=== PATIENT | female | born 1950 | race Caucasian/White ===

== ENCOUNTER → 2019-07-03 13:47 | Outpatient (BNVA) | payer MEDICARE, MEDICAID, SELFPAY | PROVIDERS: Family Provider Nurse Practitioner; PCP Nurse Practitioner; Visit Provider Family Medicine | DX: E78.00 Pure hypercholesterolemia, unspecified (principal) | CPT/HCPCS: 80061 ==

== ENCOUNTER → 2020-03-05 10:48 | Outpatient (BNVA) | payer MEDICARE, MEDICAID, SELFPAY | PROVIDERS: Family Provider Nurse Practitioner; PCP Nurse Practitioner Family; Referring Provider Nurse Practitioner Family; Visit Provider Anesthesiology | DX: G89.29 Other chronic pain (principal); M54.5 Low back pain; M54.9 Dorsalgia, unspecified; M62.830 Muscle spasm of back; M99.03 Segmental and somatic dysfunction of lumbar region; F17.210 Nicotine dependence, cigarettes, uncomplicated; Z79.891 Long term (current) use of opiate analgesic; Z71.6 Tobacco abuse counseling | CPT/HCPCS: 99204 ==

== ENCOUNTER → 2020-04-09 13:57 | Outpatient (BNVA) | payer MEDICARE, MEDICAID, SELFPAY | PROVIDERS: Family Provider Nurse Practitioner; PCP Nurse Practitioner Family; Visit Provider Anesthesiology | DX: M99.03 Segmental and somatic dysfunction of lumbar region (principal); F17.210 Nicotine dependence, cigarettes, uncomplicated; Z79.891 Long term (current) use of opiate analgesic | CPT/HCPCS: 99213 ==

== ENCOUNTER → 2020-06-04 13:39 | Outpatient (BNVA) | payer MEDICARE, MEDICAID, SELFPAY | PROVIDERS: Family Provider Nurse Practitioner; PCP Nurse Practitioner Family; Visit Provider Anesthesiology | DX: M99.03 Segmental and somatic dysfunction of lumbar region (principal); G56.40 Causalgia of unspecified upper limb; Z79.891 Long term (current) use of opiate analgesic; F17.210 Nicotine dependence, cigarettes, uncomplicated | CPT/HCPCS: 99213 ==

== ENCOUNTER → 2020-08-18 10:45 | Outpatient (BNVA) | payer MEDICARE, MEDICAID, SELFPAY | PROVIDERS: Family Provider Nurse Practitioner; PCP Nurse Practitioner Family; Visit Provider Anesthesiology | DX: M54.5 Low back pain (principal); M99.03 Segmental and somatic dysfunction of lumbar region; F17.210 Nicotine dependence, cigarettes, uncomplicated; Z79.891 Long term (current) use of opiate analgesic | CPT/HCPCS: 99213 ==

== ENCOUNTER 2020-10-09 13:36 | Inpatient (IN) | payer MEDICARE, MEDICAID, SELFPAY ==
[2020-10-09 13:44] VITALS: BP 137/80; PULSE 110; RESP 18; TEMP 36.8; O2SAT 98; BMI 11.5
--- NOTE | 2020-10-09 14:28 | XR_ITS ---
WS: [id number] Exam: XR chest 1V portable [id number] Date/Time of Exam: 10/09/2020 2:28 PM Reason For Exam: cancer Comparison 06/28/2018. There is diffuse interstitial infiltrate in the right upper lobe. Remaining lung magaña are clear. He art size is normal. The mediastinum is not widened. No pleural effusions or pneumothorax. Bony struct ures are intact. XR/XR chest 1V portable [id number] IMPRESSION: 1. Diffuse interstitial infiltrate in the right upper lobe suggesting pneumonia .
[2020-10-09 14:29] VITALS: RESP 16
[2020-10-09] MEDS: morphine 4 mg/mL SDV 1 mL IVP (14:29)
[2020-10-09] MEDS: ondansetron 2 mg/ML SDV 2 mL 4 MG IVP (14:30)
--- NOTE | 2020-10-09 14:40 | W.ED.GENADLT ---
HPI - General Adult General: Chief complaint: Weakness Stated complaint: GENERALIZED WEAKNESS Time Seen by Provider: 10/09/20 13:38 History of Present Illness: HPI narrative: Patient is a 70-year-old female with a history of metastatic lung cancer complicated by vertebral fracture who presents the emergency room for concerns of dehydration, inability to tolerate p.o. and significant weight loss. Patient was diagnosed with cancer earlier this year. Since then, patient has undergone multiple rounds of treatment. Yesterday, satient was told that she cannot complete her radiation treatment because of her significant weight loss. She was also told to go to the emergency room because she is no longer able to tolerate p.o. Patient denies any fever/chills, nausea plan, abdominal pain. Patient has chronic back pain for a few weeks now. Onset: chronic Duration:ongoing Location:home Severity:severe Review of Systems Narrative: Constitutional: No fever, no chills. +thin, +weight loss HEENT: No vision changes CV: No chest pain, no palpitations PULM: no cough, no dyspnea. GI: No abdominal pain, no N/V/D. +decreased PO intact : No dysuria MSKEL: No muscle pain SKIN: No new rashes, no lesions. NEURO: No headache, no focal weakness. HEME: No visible bruises PSYCH: Normal mood PFSH ED PFSH: Medical History Angina at rest Apnea, sleep COPD (chronic obstructive pulmonary disease) CRPS (complex regional pain syndrome type II) Left LE extremity after knee surgery. 20 yrs ago Depression, major Encounter for long-term opiate analgesic use Encounter for narcotic contract discussion Hypercholesteremia LIPID Hypertension Loss of weight Low back pain Muscle spasm of back Narcotic use agreement exists Nonallopathic lesion of rib cage, not elsewhere classified Nonallopathic lesion of upper extremities Osteoporosis Somatic dysfunction of head region Somatic dysfunction of lumbar region Somatic dysfunction of pelvic region Somatic dysfunction of spine, cervical Somatic dysfunction of spine, thoracic Surgical History H/O arthroscopy of left knee History of total abdominal hysterectomy Family History Father Diabetes Hypertension Mother Hypertension Sister Hypertension Brother Hypertension Grandfather Stroke Grandmother Stroke Social History Smoking and tobacco status: current every day smoker Alcohol intake: never History of recent travel: No Physical Exam Narrative: EXAM NARRATIVE: Const: +thin/cachetic appearing patient Head: Atraumatic Eyes: PERRL, conjunctiva without injection ENT: Dry membrane moist NECK: Unable to assess in C collar LUNGS: Decreased breath sounds b/l CV: Sinus thacycardia ABDOMEN: Soft, nontender in all quadrants EXTREMITY: Decreased ROM of the hip due to pain, +dry/clean/intact R hip surigcal site SKIN: +mild skin atopy over the back NEURO: Awake and alert, no focal motor deficits PSYCH: Normal mood and affect BACK - focal bony tenderness throughout the C/T/L/S spine, no signs of fluctuance/induration/erythema/warmth Course Vital Signs: Vital signs: Vital Signs Temperature 98.9 F 10/10/20 03:46 Pulse Rate 88 10/10/20 05:03 Respiratory Rate 18 10/10/20 05:03 Blood Pressure 114/65 10/10/20 03:46 Pulse Oximetry 96 10/10/20 05:03 MDM - General Adult MDM Narrative: Medical decision making narrative: 70-year-old female with history of stage IV metastatic lung cancer presenting to emergency room for deconditioning. Patient is thin cachectic looking on physical exam. We will admit patient to the hospital for evaluation of dehydration, decreased PO intake and weight loss. Lab Data: Labs: Lab Results 10/09/20 10/09/20 10/09/20 Range/Units 14:30 14:30 14:30 WBC 11.6 H (4.0-10.0) 10^3/ uL RBC 3.73 L (4.1-5.3) 10^6/u L Hgb 12.2 (11.5-15.3) g/dL Hct 37.1 (37.0-47.0) % MCV 99.5 H (81-99) fl MCH 32.7 (28.0-34.0) pg MCHC 32.9 (30.0-36.0) g/dL RDW 17.7 H (12.1-15.1) % Plt Count 409 H (130-400) 10^3/c mm MPV 8.8 (7.4-10.4) fL Neut % (Auto) 84.9 % Lymph % (Auto) 7.9 % [place] % (Auto) 5.7 % Eos % (Auto) 0.3 % Baso % (Auto) 0.2 % Neut # (Auto) 9.81 H (1.8-7.7) 10^3/u L Lymph # (Auto) 0.9 (0.8-4.8) 10^3/u L [place] # (Auto) 0.7 (0.2-0.9) 10^3/u L Eos # (Auto) 0.0 (0.0-0.8) 10^3/u L Baso # (Auto) 0.0 (0.0-0.1) 10^3/u L Nucleated RBC % (a uto) 0.2 % Nucleated RBCs # 0.0 /100WBC Sodium 131 L (136-145) mmol/L Potassium 3.6 (3.5-5.1) mmol/L Chloride 92 L (98-107) mmol/L Carbon Dioxide 23 (22-29) mmol/L Anion Gap 19.6 H (5-19) BUN 11 (8-23) mg/dL Creatinine 0.5 (0.5-0.9) mg/dL GFR Calculation 122.7 (90-130) mL/min Glucose 126 H (65-115) mg/dL Calculated Osmolal ity 273 L (285-295) mOsm/k g Lactate 3.6 H (0.5-2.2) mmol/L Calcium 9.0 (8.5-10.5) mg/dL Total Bilirubin 0.5 (0.15-1.2) mg/dL AST 18 (0-32) U/L ALT 8 (0-33) U/L Alkaline Phosphata se 614 H (35-105) IU/L Total Protein 6.6 (6.6-8.7) g/dL Albumin 2.7 L (3.5-5.2) g/dL Globulin 3.9 (1.3-4.6) g/dL Lipase 77 H (13-60) U/L Imaging Data^: Other Imaging: Radiologist's impression: [address] [id number] ReportSigned Patient: Gabe Rangel #: [id number]: 1950cct#:[id number]/Sex: 70 / FADM Date: 10/09/20Loc: ERRoom/Bed:Attending Dr: Ordering Provider/Ordering MD: Tia Morgan MD Date of Service: 10/09/20 Procedure(s): XR chest 1V portable [id number] Accession Number(s): [id number] Report Number: [id number] WS: [id number] Exam: XR chest 1V portable [id number] Date/Time of Exam: 10/09/2020 2:28 PM Reason For Exam: cancer Comparison 06/28/2018. There is diffuse interstitial infiltrate in the right upper lobe. Remaining lung magaña are clear. Heart size is normal. The mediastinum is not widened. No pleural effusions or pneumothorax. Bony structures are intact. XR/XR chest 1V portable [id number] IMPRESSION: 1. Diffuse interstitial infiltrate in the right upper lobe suggesting pneumonia. Dictated By:Tera St By:Tera St Date/Time:10/09/20 1502DD/ 1501 Discharge Plan Discharge Patient Disposition: Admitted As Inpatient Admit Provider: Brock Whitmore Coding Level of Care Code ED Chimney Repairer for Jitendra Worley
[2020-10-09 14:42] LABS: Basophils % 0.2 %; Eosinophils % 0.3 %; Hematocrit 37.1 % (37.0-47.0); Hemoglobin 12.2 g/dL (11.5-15.3); Lymphocytes # 0.9 10^3/uL (0.8-4.8); Lymphocytes % 7.9 %; Mean Corpuscular HGB Conc 32.9 g/dL (30.0-36.0); Mean Corpuscular Hemoglobin 32.7 pg (28.0-34.0); Mean Corpuscular Volume 99.5 fl (81-99); Mean Platelet Volume 8.8 fL (7.4-10.4); Monocytes # 0.7 10^3/uL (0.2-0.9); Monocytes % 5.7 %; Neutrophils # 9.81 10^3/uL (1.8-7.7); Neutrophils % 84.9 %; Nucleated Red Blood Cells % 0.2 %; Platelet Count 409 10^3/cmm (130-400); Red Blood Count 3.73 10^6/uL (4.1-5.3); Red Cell Distribution Width 17.7 % (12.1-15.1); White Blood Count 11.6 10^3/uL (4.0-10.0)
[2020-10-09 15:00] LABS: Alanine Aminotransferase 8 U/L (0-33); Albumin Level 2.7 g/dL (3.5-5.2); Alkaline Phosphatase 614 IU/L (35-105); Anion Gap 19.6 (5-19); Aspartate Amino Transferase 18 U/L (0-32); Blood Urea Nitrogen 11 mg/dL (8-23); Carbon Dioxide 23 mmol/L (22-29); Chloride 92 mmol/L (98-107); Globulin 3.9 g/dL (1.3-4.6); Glomerular Filtration Rate 122.7 mL/min (90-130); Glucose 126 mg/dL (65-115); Lipase 77 U/L (13-60); Osmolality Calculated 273 mOsm/kg (285-295); Potassium 3.6 mmol/L (3.5-5.1); Sodium 131 mmol/L (136-145); Total Bilirubin 0.5 mg/dL (0.15-1.2); Total Protein 6.6 g/dL (6.6-8.7)
[2020-10-09 15:01] LABS: Lactate (Lactic Acid level) 3.6 mmol/L (0.5-2.2)
--- NOTE | 2020-10-09 16:20 | XRR_ITS ---
NOTE: Report was unsigned for reason: Order was edited. Original Signature date and time was: 10/09/20 @ 1725 PROCEDURE INFORMATION: Exam: XR Bilateral Hips Exam date and time: 10/09/2020 4:20 PM Age: 70 years old Clinical indication: Hip pain; Right hip; Prior surgery; Additional info: Rhip replacement, due to path FX TECHNIQUE: Imaging protocol: XR bilateral hips. Views: 2 views of hips with pelvis when performed. COMPARISON: No relevant prior studies available. FINDINGS: Bones/joints: Patient has had a right hip hemiarthroplasty. No evidence for loosening of the surgical hardware. No acute fracture. Mild degenerative change at the left hip. Multilevel degenerative changes of varying severity in the visualized spine. Mild degenerative changes of the right and left sacroiliac joints. Soft tissues: No soft tissue swelling. No radiopaque foreign body. Organs: Surgical clips in the right upper quadrant, consistent with a previous cholecystectomy. [facility] XR/XR hip BI 2V wo/w pel [id number] IMPRESSION: 1. No acute fracture. MRI would be recommended if clinical concern for fracture persists. 2. Patient has had a right hip hemiarthroplasty. No evidence for loosening of the surgical hardware. 3. Bones are markedly osteopenic. 4. Incidental/nonacute findings are listed in the report.
--- NOTE | 2020-10-09 16:21 | P.HP_ITS ---
Providers/Chief Complaint Primary Care Provider: SARAH Robles Chief Complaint: GENERALIZED WEAKNESS History of Present Illness Renetta Rangel is a 70 year old female with a past medical history of CAD, one heart attack a year ago, no stenting, no history of CHF, no history of strokes, no history of type 2 diabetes, history of liver disease, no history of kidney disease, recent diagnosis of metastatic lung cancer, to the lumbar and thoracic spine, to the ribs, to the right hip, with metastasis to the cervical spine resulting in fracture requiring cervical collar, with pathologic fracture requiring right hip replacement, to the abdomen, to the liver, status post palliative radiation therapy according to patient everywhere above the umbilicus, denies any intracranial metastasis, cannot get Covid vaccine as there are potential plans for chemotherapy, however it is on hold as she is lost over 40 pounds, is emaciated, weak. Patient presents [facility], as she has lost a significant amount of weight, has been feeling weak, has had bilateral extremity weakness, poor appetite, nausea, trouble swallowing, intermittent cough, no fevers, has been feeling more short of breath, no chest pain, no palpitations, diffuse abdominal pain, significant right hip pain, had surgery recently, she was supposed to have the bandage removed on Monday, her cervical collar still in place, it was supposed to be removed on Monday, however she has not been able to get to any physicians in [place] as she just been quite ill. In terms of her malignancy, she wants to have full treatment, she is not interested in hospice, she wants to remain a full code. But she does tell me that if there is no likelihood of having a meaningful recovery, she does not want to have prolonged life-sustaining measures, she does not want a remain on artificial life support for a prolonged period of time. Does have dysuria, does have diarrhea, she is on liquid hydrocodone for pain, is smoking, is at bedside Review of Systems Const: Reports: body aches, change in appetite, change in weight, fatigue and malaise; Denies: fever(s) or chills Eyes: Denies: change in vision or blurry vision ENMT: Reports: throat pain; Denies: nasal congestion Card: Denies: chest pain, palpitations or dyspnea on exertion Resp: Reports: dyspnea and non-productive cough; Denies: productive cough or wheezing GI: Reports: abdominal pain and diarrhea; Denies: nausea, vomiting, hematemesis, constipation, hematochezia or melena : Reports: urinary frequency; Denies: flank pain or dysuria Musc: Reports: neck pain, back pain and joint pain Skin/Breast: Denies: rash Neuro: Denies: headache(s), dizziness or vertigo Psych: Reports: sleeping less Endo: Reports: polyuria; Denies: polydipsia Medications/Allergies Home Medications Medication Instructions Recorded Confirmed Last Taken Type amlodipine 10 mg tablet 10 mg PO DAILY #90 tab 05/08/19 10/09/20 10/09/20 Rx metoprolol tartrate 25 mg tablet 25 mg PO BID #180 tab 08/01/19 10/09/20 10/09/20 Rx fluticasone 250 mcg-salmeterol 50 1 inh INHALATION BID 30 Days #60 10/10/19 10/09/20 10/09/20 Rx mcg/dose blistr powdr for each inhalation albuterol sulfate 90 mcg/actuation 2 puff INHALATION Q6H PRN 03/05/20 10/09/20 Unknown History aerosol inhaler nitroglycerin 0.4 mg sublingual 0.4 mg SUBLINGUAL Q5M PRN 03/05/20 10/09/20 Unknown History tablet umeclidinium 62.5 mcg/actuation 1 inh INHALATION DAILY 03/05/20 10/09/20 10/09/20 History blister powder for inhalation apixaban [Eliquis] 2.5 mg PO BID 10/09/20 10/09/20 10/09/20 History atorvastatin 20 mg PO DAILY 10/09/20 10/09/20 08/13/20 History hydrocodone-acetaminophen 20 ml PO Q4H PRN 10/09/20 10/09/20 10/09/20 History naloxone [Narcan] 4 mg INTRANASAL Q3M PRN 10/09/20 10/09/20 Unknown History polyethylene glycol 3350 [Miralax] 17 g PO DAILY 10/09/20 10/09/20 10/09/20 History tizanidine 4 mg PO TID PRN 10/09/20 10/09/20 Unknown History Allergies Allergy/AdvReac Type Severity Reaction Status Date / Time iodine Allergy Unknown hives Verified 10/09/20 13:54 hand account manager sales representative Allergy Unknown edema of Uncoded 03/05/20 10:48 throat PFSH Acute PFSH: Medical History Angina at rest Apnea, sleep COPD (chronic obstructive pulmonary disease) CRPS (complex regional pain syndrome type II) Left LE extremity after knee surgery. 20 yrs ago Depression, major Encounter for long-term opiate analgesic use Encounter for narcotic contract discussion Hypercholesteremia LIPID Hypertension Loss of weight Low back pain Muscle spasm of back Narcotic use agreement exists Nonallopathic lesion of rib cage, not elsewhere classified Nonallopathic lesion of upper extremities Osteoporosis Somatic dysfunction of head region Somatic dysfunction of lumbar region Somatic dysfunction of pelvic region Somatic dysfunction of spine, cervical Somatic dysfunction of spine, thoracic Surgical History H/O arthroscopy of left knee History of total abdominal hysterectomy Family History Father Diabetes Hypertension Mother Hypertension Sister Hypertension Brother Hypertension Grandfather Stroke Grandmother Stroke Social History Smoking and tobacco status: current every day smoker Alcohol intake: never History of recent travel: No Vitals/I&O/Wt Last Vital Signs Temp 98.3 F 10/09/20 13:44 Pulse 110 H 10/09/20 13:44 Resp 16 10/09/20 14:29 BP 137/80 10/09/20 13:44 Pulse Ox 98 10/09/20 13:44 Weight last 48 hrs Weight 27.669 kg Physical Exam Const: COMMON NORMALS: no acute distress and patient oriented x3 GENERAL APPEARANCE: cooperative, in distress (Having significant right hip pain), ill appearing and frail appearing NUTRITIONAL APPEARANCE: cachectic Eye: COMMON NORMALS: EOMs intact bilaterally GENERAL EYE: appearance normal, both eyes and all related structures Neck/C-Spine: OTHER: Neck in a cervical collar Lymph: LYMPHATIC: no lymphadenopathy noted Resp: COMMON NORMALS: normal respiratory effort, No retractions, No use of accessory muscles and clear to auscultation bilaterally AUSCULTATION: clear to auscultation bilaterally Cardio: COMMON NORMALS: regular rate, regular rhythm, S1 normal heart sound present, S2 normal heart sound present, No gallops present (Cardio), No clicks present (Cardio) and No murmurs present (Cardio) RATE: regular rate RHYTHM: regular rhythm HEART SOUNDS: S1 normal heart sound present and S2 normal heart sound present GI: COMMON NORMALS: Soft to palpation AUSCULTATION: Yes normoactive bowel sounds PALPATION: Yes Tenderness to palpation present (GI) Details: LLQ, RLQ, LUQ and RUQ Back/Pelvis: OTHER: Right hip, postsurgical bandage in place, significant right hip pain with minimal movement Extremity: COMMON NORMALS: no pedal edema Neuro: COMMON NORMALS: patient oriented x3 and CN's II-XII intact bilaterally OTHER: Generalized pain, generalized weakness, pain with minimal movement of right leg, pain with minimal movement of cervical spine, pain throughout thoracic spine Psych: COMMON NORMALS: mental status grossly normal, Normal thought process present and cooperative THOUGHT PROCESS: Normal thought process present Data : 10/09/20 14:30 10/09/20 14:30 A&P Assessment and plan (1) Metastatic lung cancer (metastasis from lung to other site): -Metastatic lung cancer to liver, throughout abdomen, to right hip resulting in a pathologic fracture status post replacement, 2 cervical spine resulting in pathologic fracture, currently with cervical collar in place, throughout spine, throughout ribs, throughout pelvis -With cancer cachexia -Status post radiation therapy -Has lost a significant amount of weight, chemotherapy has not been initiated -Oncologist is in [facility] Dr. Maricruz Everett -As she wants to remain a full code, and she has evidence of pneumonia, shortness of breath, will do a CT angiogram to evaluate for pulmonary emboli, bilateral extremity ultrasound to evaluate for DVT, CT scan of the abdomen pelvis due to abdominal complaints, diffuse abdominal pain on palpation,, CT of the head -She declines hospice -Wants to remain a full code, however does not want prolonged life-sustaining measures -Eliquis for DVT prophylaxis -Protonix for GI prophylaxis Intractable cancer related pain, right hip pain, neck pain, diffuse back pain, diffuse abdominal pain, not responding to hydrocodone 7.5 every 4 hours -Start Dilaudid 0.5 mg every 4 hours as needed for moderate pain -Narcan as needed, monitor for respiratory depression Right hip pathologic fracture, status post repair, now having significant right hip pain, will do an x-ray of the right hip, will consider PT OT based on results Cervical fracture, since pathologic, status post radiation therapy, now in a collar, collar was so gross post to be removed on Monday, will hold off on , will do x-ray of cervical spine Pneumonia, diffuse pulmonary infiltrates -Immunocompromise given malignancy -Has not received Covid vaccines -Covid PCR, rapid antigen -Blood cultures, urine cultures, sputum cultures, stool cultures -Broad-spectrum antibiotic therapy, vancomycin, cefepime, Levaquin -Consult respiratory therapy Cancer cachexia, protein calorie malnutrition -Consult dietary, start on dysphagia diet for now, Ensure twice daily Generalized weakness, likely secondary to cancer as above, some component related to hyponatremia, will get a UA Hyponatremia, IV hydration Elevated lactic acid likely secondary dehydration, pneumonia, IV fluids as above Status: Acute (2) Pathological fracture of right hip: Status: Acute (3) CAD (coronary artery disease): Status: Acute (4) Cancer cachexia: Status: Acute (5) Protein calorie malnutrition: Status: Acute (6) Pathologic cervical vertebral fracture: Status: Acute (7) COPD (chronic obstructive pulmonary disease): Status: Acute (8) Hyponatremia: Status: Acute (9) Pneumonia: Status: Acute (10) Elevated lactic acid level: Status: Acute (11) Pain of metastatic malignancy: Status: Acute (12) Intractable pain: Status: Acute (13) Generalized weakness: Status: Acute Attestations Medical Necessity Statement*: Patient requires hospitalization, inpatient, greater than 2 midnights, due to metastatic lung malignancy, with intractable pain, diffuse weakness, pneumonia, hyponatremia, cancer related cachexia, inability to swallow Coding Level of Care Code Acute Economics Professor for Chg Fwd Diagnoses Metastatic lung cancer (metastasis from lung to other site) C34.90 Pathological fracture of right hip M84.451A CAD (coronary artery disease) I25.10 Cancer cachexia R64 Protein calorie malnutrition E46 Pathologic cervical vertebral fracture M84.48XA COPD (chronic obstructive pulmonary disease) J44.9 Hyponatremia E87.1 Pneumonia J18.9 Elevated lactic acid level R79.89 Pain of metastatic malignancy G89.3 Intractable pain R52 Generalized weakness R53.1
[2020-10-09 16:25] VITALS: RESP 18
[2020-10-09] MEDS: azithromycin 250 mg Tablet 500 MG PO (16:25)
[2020-10-09] MEDS: morphine 4 mg/mL SDV 1 mL 2 MG IVP (16:25)
[2020-10-09 16:33] LABS: INR 1.03 (0.8-1.2)
--- NOTE | 2020-10-09 16:35 | XRR_ITS ---
PROCEDURE INFORMATION: Exam: XR Spine; Cervical Exam date and time: 10/09/2020 4:35 PM Age: 70 years old Clinical indication: Pain: Neck pain TECHNIQUE: Imaging protocol: XR of the spine. Exam focused on the cervical spine. Views: 1 view. COMPARISON: No relevant prior studies available. FINDINGS: Bones/joints: Vertebral body height is maintained. Bones are markedly osteopenic. Multilevel degenerative changes of varying severity in the visualized spine. Grade I anterolisthesis of C4 on C5, possibly due to facet degenerative change. No evidence for acute fracture on single lateral image. Vasculature: Atherosclerotic changes in the visualized arteries. Soft tissues: No prevertebral soft tissue swelling. No radiopaque foreign body. XR/XR cervical spine 1V [id number] IMPRESSION: 1. No evidence for acute fracture on single lateral image. Completion C-spine x-ray series or CT scan of the cervical spine is recommended as there is clinical concern for acute fracture. 2. Bones are markedly osteopenic. 3. Multilevel degenerative changes of varying severity in the visualized spine. 4. Incidental/nonacute findings are listed in the report.
--- NOTE | 2020-10-09 16:36 | CTR_ITS ---
PROCEDURE INFORMATION: Exam: CT Cervical Spine Without Contrast Exam date and time: 10/09/2020 4:36 PM Age: 70 years old Clinical indication: Neck pain; Patient HX: Lung cancer; Additional info: FX TECHNIQUE: Imaging protocol: Computed tomography images of the cervical spine without contrast. Radiation optimization: All CT scans at this facility use at least one of these dose optimization techniques: automated exposure control; mA and/or kV adjustment per patient size (includes targeted exams where dose is matched to clinical indication); or iterative reconstruction. COMPARISON: CR (NECK, ) 10/09/2020 4:49 PM RADIATION DOSE METRICS: Total DLP (mGy-cm): 203.09 FINDINGS: Bones/joints: Large predominantly lytic lesion of the C1 vertebrae extending from the anterior midline along the left anterior arch to the left lateral mass and the anterior aspect of the left posterior arch (series 602, images 28-38). Small lytic lesion at the anterior dens of C2 (series 601, image 39). Mild anterior subluxation of the posterior arch of C1. There is superior subluxation of the dens of C2 with the tip of the dens abutting the inferior tip of the basiocciput and the posterior dens protruding into the foramen magnum. Resulting mild stenosis of the foramen magnum and the upper spinal canal at the C1 level. There is also superior/posterior subluxation of the spinous process of C2 with respect to C1. Moderate lytic lesion of the right C3 vertebral body extending to the right pedicle (series 602, images 36-39). Age-indeterminate pathologic fracture of the right C3 vertebral body. Small lytic lesion in the right C5 vertebral body extending to the posterior cortex (series 604, image 2). Moderate/large lytic lesion of the left C6 vertebral body extending posteriorly into the spinal canal and abuts the anterior thecal sac (series 604, image 6). There is a mild age-indeterminate compression deformity of the C6 vertebral body. Small lytic lesion in the C7 vertebral body (series 602, image 34). Large lytic lesion of the left C7 vertebral body extending to the left transverse process and left pedicle (series 602, images 32-37). Sclerotic lesions of the right and left T1 transverse processes. Small lytic lesion in the left T1 transverse process (series 602, image 30). Large mixed lesion with a predominantly lytic component in the left T1 vertebral body extending to the left superior facet, left transverse process, and adjacent posterior left rib (series 604, images 9-17). There is an associated surrounding soft tissue mass. Small lytic lesion in the right T2 transverse process. Sclerotic lesion involving virtually the entire T3 vertebral body. Age-indeterminate mild compression deformity of T3. Sclerotic lesions involving the T4 vertebral body and bilateral transverse processes. Sclerotic lesions involving virtually all the visualized 1st through 4th ribs bilaterally as well as a lytic lesion with associated soft tissue mass in the lateral right 2nd rib. Mild levoscoliosis in the visualized spine. Discs/Spinal canal/Neural foramina: Multilevel degenerative changes of varying severity in the visualized spine. Mild spinal canal stenosis at C2-C3 and multilevel foraminal stenosis of varying severity in the cervical spine secondary to degenerative change. Epidural space: No evidence for an epidural hematoma. Lungs: Visualized lungs are clear. Bilateral apical pleural thickening. Moderate centrilobular and mild paraseptal emphysematous changes in the visualized lungs. Vasculature: Atherosclerotic changes in the visualized arteries. Soft tissues: No soft tissue swelling. No radiopaque foreign body. CT/CT cervical spin wo con* [id number] IMPRESSION: 1. Moderate lytic lesion of the right C3 vertebral body extending to the right C3 pedicle and moderate/large lytic lesion of the left C6 vertebral body extending posteriorly into the spinal canal and abutting the anterior thecal sac, and a sclerotic lesion involving virtually the entire T3 vertebral body. Age-indeterminate pathologic compression fractures of C3, C6, and T3. 2. Further evaluation of the spinal canal may be obtained with MRI of the cervical spine without and with contrast. 3. Large predominantly lytic lesion of the C1 vertebrae extending from the anterior midline along the left anterior arch to the left lateral mass and the anterior aspect of the left posterior arch. There is superior subluxation of the dens of C2 with the tip of the dens abutting the inferior tip of the basiocciput and the posterior dens protruding into the foramen magnum. Resulting mild stenosis of the foramen magnum and the upper spinal canal at the C1 level. There is also superior/posterior subluxation of the spinous process of C2 with respect to C1. 4. Additional lytic and sclerotic lesions involving virtually all visualized spinal levels and all rib levels bilaterally. These include large lesions at the posterior left 1st rib/T1 vertebrae and the lateral right 2nd rib with associated soft tissue masses in these areas. Multiple vertebral body levels have lesions in different areas of the individual vertebrae. 5. Multilevel degenerative changes of varying severity in the visualized spine. Mild spinal canal stenosis at C2-C3 and multilevel foraminal stenosis of varying severity in the cervical spine secondary to degenerative change. 6. Incidental/nonacute findings are listed in the report. Radiation Dose CTDIVOL = (mGy): DLP = 203.09 (mGy-cm)
[2020-10-09 16:43] LABS: NT Pro B Type Natriuretic Pept 292 pg/mL (0-125); Procalcitonin 0.34 ng/mL (0-0.5)
[2020-10-09 16:54] LABS: C Reactive Protein 119.2 mg/L (0.0-4.9); Magnesium 1.8 mg/dL (1.7-2.3); Phosphorus 3.3 mg/dL (2.5-4.5)
[2020-10-09 16:55] LABS: Troponin(5th) Baseline 38 ng/L (0-10)
[2020-10-09] MEDS: cefepime 1,000 MG in sodium chloride 0.9% (plus) 50 ML 100 MG IV (17:21)
[2020-10-09 17:53] LABS: Troponin 5 2HR 35.35 ng/L (0-10)
[2020-10-09 17:56] LABS: Troponin 5 2HR Delta -2.65 ABS# (0-10)
[2020-10-09] MEDS: HYDROmorphone 1 mg/mL INJ 1 mL 0.5 MG IVP (18:30)
[2020-10-09] MEDS: vancomycin 1,000 MG in sodium chloride 0.9% 250 ML 250 MG IV (18:32)
[2020-10-09 18:39] VITALS: BP 126/71; PULSE 100; RESP 16; O2SAT 95
--- NOTE | 2020-10-09 19:37 | USR_ITS ---
PROCEDURE INFORMATION: Exam: US Duplex Lower Extremity Veins, Bilateral Exam date and time: 10/09/2020 7:37 PM Age: 70 years old Clinical indication: Pain; Leg, upper and leg, lower; Bilateral; Prior surgery; Surgery date: 3-7 days post-operative; Surgery type: RT hip orif; Additional info: Dvt TECHNIQUE: Imaging protocol: Real-time duplex ultrasound of the extremities with 2-D haque scale, color Doppler flow and spectral waveform analysis with image documentation. Complete exam focused on the bilateral lower extremity veins. COMPARISON: No relevant prior studies available. FINDINGS: Right deep veins: Hypoechoic occlusive thrombus in the right posterior tibial vein. Common femoral, profunda femoral, femoral, popliteal, posterior tibial, and peroneal veins are patent with normal compressibility. Right superficial veins: Occlusive hypoechoic thrombus in the right greater saphenous vein in the mid right thigh at the level of Levi's canal. Common femoral, profunda femoral, femoral, popliteal, posterior tibial, and peroneal veins are patent with normal compressibility. Left deep veins: Hypoechoic nonocclusive thrombus at the junction of the left femoral vein and left profunda femoral vein. Left superficial veins: Saphenofemoral junction is patent without thrombus. Soft tissues: Unremarkable as visualized. US/[place] [id number] IMPRESSION: 1. Nonocclusive deep venous thrombosis at the junction of the left femoral vein and left profunda femoral vein. 2. Occlusive deep venous thrombosis in the right posterior tibial vein. 3. Occlusive hypoechoic superficial thrombosis in the right greater saphenous vein in the mid right thigh at the level of Levi's canal.
[2020-10-09 20:00] VITALS: BP 117/75; PULSE 108; RESP 17; TEMP 36.6; O2SAT 90
[2020-10-09 21:13] LABS: Thyroid Stimulating Hormone 1.83 uIU/mL (0.27-4.20)
[2020-10-09 21:34] LABS: Troponin 5 6HR 38.55 ng/L (0-10); Troponin 5 6HR Delta 0.55 ng/L (0-12)
[2020-10-09] MEDS: tizanidine 4 mg Tablet PO (21:53)
[2020-10-09] MEDS: famotidine 20 mg Tablet PO (21:53)
[2020-10-09] MEDS: enoxaparin 30 mg/0.3 mL Syringe SUBCUT (21:54)
[2020-10-09] MEDS: cefepime 2,000 MG in sodium chloride 0.9% (plus) 50 ML 100 MG IV (21:54)
[2020-10-09] MEDS: dextrose 5%-sod chloride 0.9% 1,000 ML 100 ML IV (21:54)
[2020-10-09] MEDS: HYDROcodone-APAP 7.5-325 mg/15 mL UDC 20 ML PO (23:10)
[2020-10-10] VITALS (15 sets, daily range): BP systolic 77–132; BP diastolic 34–73; PULSE 77–115; RESP 15–22; TEMP 36.4–37.2; O2SAT 89–100
[2020-10-10 01:33] LABS: SARS Covid-2 Antigen Negative (Negative)
[2020-10-10] MEDS: HYDROcodone-APAP 7.5-325 mg/15 mL UDC 20 ML PO ×2 (06:14→10:19)
[2020-10-10] MEDS: dextrose 5%-sod chloride 0.9% 1,000 ML 100 ML IV ×2 (06:15→08:17)
[2020-10-10] MEDS: HYDROmorphone 1 mg/mL INJ 1 mL 0.5 MG IVP ×2 (08:40→12:33)
[2020-10-10] MEDS: polyethylene glycol 3350 Pkt 17 gm PO (08:40)
[2020-10-10] MEDS: enoxaparin 30 mg/0.3 mL Syringe SUBCUT ×2 (08:40→21:37)
[2020-10-10] MEDS: famotidine 20 mg Tablet PO (08:41)
[2020-10-10] MEDS: levofloxacin-dextrose 5 % 750 MG/150 ML PREMIX 100 MG IV (08:41)
[2020-10-10] MEDS: atorvastatin 40 mg Tablet 20 MG PO (08:41)
--- NOTE | 2020-10-10 12:30 | PC.OT ---
Occupational therapy evaluation attempted. Patient refused therapy services stating something to the effect that she is in too much pain and will be in too much pain to ever participate in therapy. Patient refused occupational and physical therapy services.
--- NOTE | 2020-10-10 12:36 | PC.PT ---
per OT, pt refusing therapy, to high a pain level despite pain meds being administered per orders. possible hospice candidate.
--- NOTE | 2020-10-10 13:06 | P.PN_ITS ---
Subjective Subjective: Interval history: Review of patient's medical records from [facility] shows that she has metastatic non-small cell lung cancer, metastatic bone disease, adenocarcinoma the right lung, with metastasis to bone, metastases to the liver, closed nondisplaced fracture of first cervical vertebra, liver mass, mediastinal adenopathy, metastatic to adrenal gland, c urrently receiving palliative radiotherapy through Dr. Ruff in [place] Work-up here so far shows that she has pneumonia diffuse interstitial infiltrates indicating pneumonia, likely aspiration, bilateral extremity ultrasound shows nonocclusive DVTs of bilateral lower extremities on Eliquis, s he were switched to Lovenox overnight CT of the neck unfortunately shows 1. Moderate lytic lesion of the right C3 vertebral body extending to the right C3 pedicle and moderate/large lytic lesion of the left C6 vertebral body extending posteriorly into the spinal canal and abutting the anterior thecal sac, and a sclerotic lesion involving virtually the entire T3 vertebral body. Age-indeterminate pathologic compression fractures of C3, C6, and T3. 2. Further evaluation of the spinal canal may be obtained with MRI of the cervical spine without and with contrast. 3. Large predominantly lytic lesion of the C1 vertebrae extending from the anterior midline along the left anterior arch to the left lateral mass and the anterior aspect of the left posterior arch. There is superior subluxation of the dens of C2 with the tip of the dens abutting the inferior tip of the basiocciput and the posterior dens protruding into the foramen magnum. Resulting mild stenosis of the foramen magnum and the upper spinal canal at the C1 level. There is also superior/posterior subluxation of the spinous process of C2 with respect to C1. 4. Additional lytic and sclerotic lesions involving virtually all visualized spinal levels and all rib levels bilaterally. These include large lesions at the posterior left 1st rib/T1 vertebrae and the lateral right 2nd rib with associated soft tissue masses in these areas. Multiple vertebral body levels have lesions in different areas of the individual vertebrae. 5. Multilevel degenerative changes of varying severity in the visualized spine. Mild spinal canal stenosis at C2-C3 and multilevel foraminal stenosis of varying severity in the cervical spine secondary to degenerative change. -Given her weakness I am quite concerned for spinal cord impingement evidence, she was started on Decadron -Unfortunately patient cannot tolerate any further studies, CT scan of chest abdomen pelvis or MRI of spine due to significant bony pain and diffuse pain, not improving with Dilaudid 0.5 mg every 4 hours as needed and [place] 7.5 every 4 hours as needed -She continues to be in constant pain, pain with minimal range of motion -I had a discussion with patient and at bedside this afternoon -I discussed her goals of care, patient does not want any further testing, does not want any further evaluation, she just wants to be comfortable, she just wants her pain to be adequately treated, she wants to go home, she does not want any further treatment for her cancer -After discussion of the risks and benefits of palliative treatments, chemotherapy, hospice, and all options available to patient, -She verbalized understanding, all questions answered -Patient has agreed to proceed to home hospice -We will start patient on hospice orders, consult hospice -Continue Decadron, continue antibiotics for now -Patient has been using [place] 7.5 every 4 hours as needed for pain, and she has been using it every 4 hours at home [id number], which is roughly 45 mEq of morphine, which is not treating her pain -Unfortunately patient continues to be in constant pain, diffuse musculoskeletal pain secondary to metastatic lung cancer to bone, she also has a neck brace on, she is too scared to have it removed due to the risk of spinal cord compression, and cervical fracture, she also has a right hip pathologic fracture status post right hip in late placement that also significantly bothering her -Thus I will start her on Dilaudid 2 mg every 4 hours as needed for pain which is roughly equivalent to 48 morphine equivalents. Morphine 2 mg every 4 hours as needed for breakthrough pain, which is roughly 24 morphine equivalents. We will titrate up from here -Unfortunately leslee o not have a morphine [employer] available which would be ideal -The goal here is not to hasten her , but it is to manage her severe cancer related pain Vitals/I&O/Wt Last Vital Signs Temp 97.9 F 10/10/20 11:40 Pulse 113 H 10/10/20 11:40 Resp 16 10/10/20 12:33 BP 132/69 10/10/20 11:40 Pulse Ox 100 10/10/20 11:40 10/09/20 10/10/20 10/10/20 22:59 06:59 14:59 Intake Total 350 / 350 1075 / 1425 1180 / 1180 Output Total 120 / 120 Balance 350 / 350 1075 / 1425 1060 / 1060 Weight last 48 hrs Weight 27.669 kg Physical Exam Const: GENERAL APPEARANCE: in distress, ill appearing and frail appearing OTHER: In significant pain, continues to yell out due to episodes of pain Resp: COMMON NORMALS: normal respiratory effort, No retractions and No use of accessory muscles AUSCULTATION: crackles Cardio: COMMON NORMALS: regular rate, regular rhythm, S1 normal heart sound present and S2 normal heart sound present RATE: regular rate RHYTHM: regular rhythm HEART SOUNDS: S1 normal heart sound present and S2 normal heart sound present GI: COMMON NORMALS: Normal to inspection, nondistended, normoactive bowel sounds present Extremity: COMMON NORMALS: no pedal edema Data : 10/09/20 14:30 10/09/20 14:30 Micro: Microbiology 10/09/20 17:05 Blood Culture - Preliminary Blood SPECIMEN COLLECTED 10/09/20 17:00 Blood Culture - Preliminary Blood SPECIMEN COLLECTED A&P Assessment and plan (1) Metastatic lung cancer (metastasis from lung to other site): -Metastatic lung cancer to liver, throughout abdomen, to right hip resulting in a pathologic fracture status post replacement, 2 cervical spine resulting in pathologic fracture, currently with cervical collar in place, throughout spine, throughout ribs, throughout pelvis -With cancer cachexia -Status post radiation therapy -Has lost a significant amount of weight, chemotherapy has not been initiated -Oncologist is in [facility] Dr. Maricruz Everett -Severe cancer related pain -Declines further testing, wants to go to hospice -Does have bilateral lower extremity DVTs, I am concerned for the possibility of pulmonary emboli, however patient is going on hospice, no further need of further testing -She has changed her CODE STATUS, is a DNR/DNI, allow natural -Lovenox for DVT prophylaxis -Protonix for GI prophylaxis Intractable cancer related pain, right hip pain, neck pain, diffuse back pain, diffuse abdominal pain, not responding to hydrocodone 7.5 every 4 hours -Start Dilaudid 2 mg mg every 4 hours as needed for moderate pain -Morphine 2 mg every 4 hours as needed for breakthrough pain Right hip pathologic fracture, status post repair, now having significant right hip pain, Cervical fracture, since pathologic, status post radiation therapy, now in a collar, collar was so gross post to be removed on Wednesday -1. Moderate lytic lesion of the right C3 vertebral body extending to the right C3 pedicle and moderate/large lytic lesion of the left C6 vertebral body extending posteriorly into the spinal canal and abutting the anterior thecal sac, and a sclerotic lesion involving virtually the entire T3 vertebral body. Age-indeterminate pathologic compression fractures of C3, C6, and T3. 2. Further evaluation of the spinal canal may be obtained with MRI of the cervical spine without and with contrast. 3. Large predominantly lytic lesion of the C1 vertebrae extending from the anterior midline along the left anterior arch to the left lateral mass and the anterior aspect of the left posterior arch. There is superior subluxation of the dens of C2 with the tip of the dens abutting the inferior tip of the basiocciput and the posterior dens protruding into the foramen magnum. Resulting mild stenosis of the foramen magnum and the upper spinal canal at the C1 level. There is also superior/posterior subluxation of the spinous process of C2 with respect to C1. 4. Additional lytic and sclerotic lesions involving virtually all visualized spinal levels and all rib levels bilaterally. These include large lesions at the posterior left 1st rib/T1 vertebrae and the lateral right 2nd rib with associated soft tissue masses in these areas. Multiple vertebral body levels have lesions in different areas of the individual vertebrae. 5. Multilevel degenerative changes of varying severity in the visualized spine. Mild spinal canal stenosis at C2-C3 and multilevel foraminal stenosis of varying severity in the cervical spine secondary to degenerative change. -Has evidence of spinal cord impingement, continue Decadron -Has a significant risk of paralysis associate with spinal cord impingement, she wants to go to hospice -I have advised patient she can take off cervical collar, to make it comfortable, as she is going to hospice and we would be emphasizing her quality of life, minimizing her pain, she does have a risk of cervical fracture and paralysis, but we would focus on just managing her pain Pneumonia, diffuse pulmonary infiltrates -Immunocompromise given malignancy -Has not received Covid vaccines -Covid PCR, rapid antigen negative -Blood cultures, urine cultures, sputum cultures, stool cultures -Broad-spectrum antibiotic therapy, vancomycin, cefepime, Levaquin, continue for now we will de-escalate when hospice team comes by -Consult respiratory therapy Cancer cachexia, protein calorie malnutrition -Consult dietary, regular diet Generalized weakness, Hyponatremia, hospice Elevated lactic acid likely secondary dehydration, pneumonia, hospice Status: Acute (2) Pathological fracture of right hip: Status: Acute (3) CAD (coronary artery disease): Status: Acute (4) Cancer cachexia: Status: Acute (5) Protein calorie malnutrition: Status: Acute (6) Pathologic cervical vertebral fracture: Status: Acute (7) COPD (chronic obstructive pulmonary disease): Status: Acute (8) Hyponatremia: Status: Acute (9) Pneumonia: Status: Acute (10) Elevated lactic acid level: Status: Acute (11) Pain of metastatic malignancy: Status: Acute (12) Intractable pain: Status: Acute (13) Generalized weakness: Status: Acute Attestations Medical Necessity Statement*: Patient requires hospitalization for metastatic lung cancer, intractable pain, proceeding to hospice Coding Level of Care Code Acute 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
[2020-10-10] MEDS: HYDROmorphone 1 mg/mL INJ 1 mL 2 MG IVP ×2 (17:28→21:35)
[2020-10-10] MEDS: vancomycin 500 MG in sodium chloride 0.9% (plus) 100 ML 200 MG IV (17:34)
[2020-10-10] MEDS: cefepime 2,000 MG in sodium chloride 0.9% (plus) 50 ML 100 MG IV (21:37)
[2020-10-10] MEDS: LORazepam 2 mg/mL INJ 1 mL IVP (22:47)
[2020-10-10] MEDS: morphine 10 mg/0.5 mL oral liq UD 2 MG SUBLINGUAL (22:47)
[2020-10-11] VITALS (8 sets, daily range): BP systolic 103–136; BP diastolic 69–79; PULSE 102–119; RESP 14–18; TEMP 36.4–36.9; O2SAT 85–99
[2020-10-11] MEDS: dexamethasone 10 mg/mL INJ IVP ×2 (02:15→12:53)
[2020-10-11] MEDS: sennosides-docusate Tablet 1 TAB PO ×2 (09:43→18:01)
[2020-10-11] MEDS: enoxaparin 30 mg/0.3 mL Syringe SUBCUT ×2 (09:43→23:08)
[2020-10-11] MEDS: HYDROmorphone 1 mg/mL INJ 1 mL 2 MG IVP (12:52)
--- NOTE | 2020-10-11 12:59 | P.PN_ITS ---
Subjective Subjective: Interval history: Patient was seen this morning, she tells me that her pain is well controlled, but it is making her drowsy, no nausea, no vomiting Vitals/I&O/Wt Last Vital Signs Temp 97.6 F 10/11/20 12:00 Pulse 119 H 10/11/20 12:00 Resp 18 10/11/20 12:52 BP 107/69 10/11/20 12:00 Pulse Ox 94 10/11/20 12:52 10/10/20 10/11/20 10/11/20 22:59 06:59 14:59 Intake Total 150 / 1450 1000 / 2450 Balance 150 / 1330 1000 / 2330 Weight last 48 hrs Weight 27.669 kg Physical Exam Const: COMMON NORMALS: no acute distress GENERAL APPEARANCE: ill appearing and frail appearing NUTRITIONAL APPEARANCE: cachectic ORIENTATION/CONSCIOUSNESS: Yes awake, Yes oriented to person and Yes oriented to place Neck/C-Spine: OTHER: Neck in a cervical collar Resp: COMMON NORMALS: normal respiratory effort, No retractions, No use of accessory muscles and clear to auscultation bilaterally AUSCULTATION: clear to auscultation bilaterally Cardio: COMMON NORMALS: regular rate, regular rhythm, S1 normal heart sound present and S2 normal heart sound present RATE: regular rate RHYTHM: regular rhythm HEART SOUNDS: S1 normal heart sound present and S2 normal heart sound present GI: COMMON NORMALS: Normal to inspection, nondistended, normoactive bowel sounds present and Soft to palpation PALPATION: Yes Soft to palpation Back/Pelvis: OTHER: Right hip, postsurgical bandage in place, significant right hip pain with minimal movement Extremity: COMMON NORMALS: no pedal edema Neuro: SENSORIUM/ORIENTATION: Yes oriented to person and Yes oriented to place Data : 10/09/20 14:30 10/09/20 14:30 Micro: Microbiology 10/09/20 17:05 Blood Culture - Preliminary Blood NEGATIVE TO DATE 10/09/20 17:00 Blood Culture - Preliminary Blood NEGATIVE TO DATE A&P Assessment and plan (1) Metastatic lung cancer (metastasis from lung to other site): -Metastatic lung cancer to liver, throughout abdomen, to right hip resulting in a pathologic fracture status post replacement, 2 cervical spine resulting in pathologic fracture, currently with cervical collar in place, throughout spine, throughout ribs, throughout pelvis -With cancer cachexia -Status post radiation therapy -Has lost a significant amount of weight, chemotherapy has not been initiated -Oncologist is in [facility] Dr. Maricruz Everett -Severe cancer related pain -Declines further testing, wants to go to hospice -Does have bilateral lower extremity DVTs, I am concerned for the possibility of pulmonary emboli, however patient is going on hospice, no further need of further testing -She has changed her CODE STATUS, is a DNR/DNI, allow natural -Lovenox for DVT prophylaxis -Protonix for GI prophylaxis Intractable cancer related pain, right hip pain, neck pain, diffuse back pain, diffuse abdominal pain, not responding to hydrocodone 7.5 every 4 hours -Decreased Dilaudid 1.5 mg mg every 4 hours as needed for moderate pain -Decrease morphine 1.5 mg every 6 hours as needed for breakthrough pain Right hip pathologic fracture, status post repair, now having significant right hip pain, Cervical fracture, since pathologic, status post radiation therapy, now in a collar, collar was so gross post to be removed on Monday -1. Moderate lytic lesion of the right C3 vertebral body extending to the right C3 pedicle and moderate/large lytic lesion of the left C6 vertebral body extending posteriorly into the spinal canal and abutting the anterior thecal sac, and a sclerotic lesion involving virtually the entire T3 vertebral body. Age-indeterminate pathologic compression fractures of C3, C6, and T3. 2. Further evaluation of the spinal canal may be obtained with MRI of the cervical spine without and with contrast. 3. Large predominantly lytic lesion of the C1 vertebrae extending from the anterior midline along the left anterior arch to the left lateral mass and the anterior aspect of the left posterior arch. There is superior subluxation of the dens of C2 with the tip of the dens abutting the inferior tip of the basiocciput and the posterior dens protruding into the foramen magnum. Resulting mild stenosis of the foramen magnum and the upper spinal canal at the C1 level. There is also superior/posterior subluxation of the spinous process of C2 with respect to C1. 4. Additional lytic and sclerotic lesions involving virtually all visualized spinal levels and all rib levels bilaterally. These include large lesions at the posterior left 1st rib/T1 vertebrae and the lateral right 2nd rib with associated soft tissue masses in these areas. Multiple vertebral body levels have lesions in different areas of the individual vertebrae. 5. Multilevel degenerative changes of varying severity in the visualized spine. Mild spinal canal stenosis at C2-C3 and multilevel foraminal stenosis of varying severity in the cervical spine secondary to degenerative change. -Has evidence of spinal cord impingement, continue Decadron -Has a significant risk of paralysis associate with spinal cord impingement, she wants to go to hospice -I have advised patient she can take off cervical collar, to make it comfortable, as she is going to hospice and we would be emphasizing her quality of life, minimizing her pain, she does have a risk of cervical fracture and para lysis, but we would focus on just managing her pain Pneumonia, diffuse pulmonary infiltrates -Immunocompromise given malignancy -Has not received Covid vaccines -Covid PCR, rapid antigen negative -Blood cultures, urine cultures, sputum cultures, stool cultures -Broad-spectrum antibiotic therapy, vancomycin, cefepime, Levaquin, continue for now we will de-escalate when hospice team comes by -Consult respiratory therapy Cancer cachexia, protein calorie malnutrition -Consult dietary, regular diet Generalized weakness, Hyponatremia, hospice Elevated lactic acid likely secondary dehydration, pneumonia, hospice Status: Acute (2) Pathological fracture of right hip: Status: Acute (3) CAD (coronary artery disease): Status: Acute (4) Cancer cachexia: Status: Acute (5) Protein calorie malnutrition: Status: Acute (6) Pathologic cervical vertebral fracture: Status: Acute (7) COPD (chronic obstructive pulmonary disease): Status: Acute (8) Hyponatremia: Status: Acute (9) Pneumonia: Status: Acute (10) Elevated lactic acid level: Status: Acute (11) Pain of metastatic malignancy: Status: Acute (12) Intractable pain: Status: Acute (13) Generalized weakness: Status: Acute Attestations Medical Necessity Statement*: Patient requires hospitalization for intractable pain secondary to metastatic lung cancer, transition to hospice, continue antibiotics for pneumonia Coding Level of Care Code Acute Financial Services Rep for [facility] Fwd Diagnoses Metastatic lung cancer (metastasis from lung to other site) C34.90 Pathological fracture of right hip M84.451A CAD (coronary artery disease) I25.10 Cancer cachexia R64 Protein calorie malnutrition E46 Pathologic cervical vertebral fracture M84.48XA COPD (chronic obstructive pulmonary disease) J44.9 Hyponatremia E87.1 Pneumonia J18.9 Elevated lactic acid level R79.89 Pain of metastatic malignancy G89.3 Intractable pain R52 Generalized weakness R53.1
[2020-10-11] MEDS: vancomycin 500 MG in sodium chloride 0.9% (plus) 100 ML 200 MG IV (13:09)
[2020-10-11] MEDS: morphine 10 mg/0.5 mL oral liq UD 1.5 MG SUBLINGUAL (22:09)
[2020-10-12] VITALS (9 sets, daily range): BP systolic 101–104; BP diastolic 68–75; PULSE 105–118; RESP 14–20; TEMP 36.6–37.2; O2SAT 92–94
[2020-10-12 02:17] LABS: Quest SARS-CoV-2 RNA NOT DETECTED (NOT DETECTED)
[2020-10-12] MEDS: dexamethasone 4 mg Tablet 10 MG PO (02:35)
[2020-10-12 06:22] LABS: Anion Gap 13.2 (5-19); Blood Urea Nitrogen 12 mg/dL (8-23); Calcium 8.7 mg/dL (8.5-10.5); Carbon Dioxide 22 mmol/L (22-29); Chloride 99 mmol/L (98-107); Glomerular Filtration Rate 221.2 mL/min (90-130); Glucose 101 mg/dL (65-115); Osmolality Calculated 270 mOsm/kg (285-295); Potassium 4.2 mmol/L (3.5-5.1); Sodium 130 mmol/L (136-145)
[2020-10-12] MEDS: enoxaparin 30 mg/0.3 mL Syringe SUBCUT (08:46)
[2020-10-12] MEDS: sennosides-docusate Tablet 1 TAB PO (08:46)
--- NOTE | 2020-10-12 12:34 | PC.SOCIAL ---
IMM Update Pg. 2of IMM updated and reviewed with patient, who verbalized understanding. Copy provided.
--- NOTE | 2020-10-12 15:36 | P.DS_ITS ---
Discharge Providers Date of Admission: 10/09/20 14:24 Date of Discharge: 10/12/20 Attending Provider at Admission: Brock Whitmore MD Attending Provider at Discharge: Aris Arteaga MD Primary Care Provider: SARAH Robles Diagnoses at Discharge Discharge Diagnosis (1) Metastatic lung cancer (metastasis from lung to other site): (2) Pathological fracture of right hip: (3) CAD (coronary artery disease): (4) Cancer cachexia: (5) Protein calorie malnutrition: (6) Pathologic cervical vertebral fracture: (7) COPD (chronic obstructive pulmonary disease): (8) Hyponatremia: Status: Resolved (9) Pneumonia: Status: Resolved (10) Elevated lactic acid level: Status: Resolved (11) Pain of metastatic malignancy: (12) Intractable pain: (13) Generalized weakness: Reason for Visit Reason for Visit: GENERALIZED WEAKNESS Hospital Course Hospital Course H&P 8 Renetta Rangel is a 70 year old female with a past medical history of CAD, one heart attack a year ago, no stenting, no history of CHF, no history of strokes, no history of type 2 diabetes, history of liver disease, no history of kidney disease, recent diagnosis of metastatic lung cancer, to the lumbar and thoracic spine, to the ribs, to the right hip, with metastasis to the cervical spine resulting in fracture requiring cervical collar, with pathologic fracture requiring right hip replacement, to the abdomen, to the liver, status post palliative radiation therapy according to patient everywhere above the umbilicus, denies any intracranial metastasis, cannot get Covid vaccine as there are potential plans for chemotherapy, however it is on hold as she is lost over 40 pounds, is emaciated, weak. Patient presents [facility], as she has lost a significant amount of weight, has been feeling weak, has had bilateral extremity weakness, poor appetite, nausea, trouble swallowing, intermittent cough, no fevers, has been feeling more short of breath, no chest pain, no palpitations, diffuse abdominal pain, significant right hip pain, had surgery recently, she was supposed to have the bandage removed on Monday, her cervical collar still in place, it was supposed to be removed on Monday, however she has not been able to get to any physicians in [place] as she just been quite ill. In terms of her malignancy, she wants to have full treatment, she is not interested in hospice, she wants to remain a full code. But she does tell me that if there is no likelihood of having a meaningful recovery, she does not want to have prolonged life-sustaining measures, she does not want a remain on artificial life support for a prolonged period of time. Does have dysuria, does have diarrhea, she is on liquid hydrocodone for pain, is smoking, is at bedside hospital course: admitted , multple imaging done. treated with IV opiods dietary consulted treated for PNA medications transitioned to oral. discharged home code DNR/DNI Physical Exam Const: COMMON NORMALS: no acute distress NUTRITIONAL APPEARANCE: cachectic Resp: COMMON NORMALS: normal respiratory effort and No retractions GI: COMMON NORMALS: Soft to palpation and non-tender PALPATION: Yes Soft to palpation Discharge Data Data Completed and Pending: Completed Studies During Hospitalization Category Date Time Status CT cervical spin wo con* [id number] Urge nt Cat Scan 10/09/20 16:36 Completed XR cervical spine 1V [id number] Stat Exams 10/09/20 16:35 Completed XR chest 1V michelle ble [id number] Stat Exams 10/09/20 14:28 Completed XR hip BI m 5V wo /w pel* [id number] Stat Exams 10/09/20 16:20 [place] [id number] Urgent Ultrasound 10/09/20 19:37 Completed Vitals: Last Vital Signs Temp 98.5 F 10/12/20 11:31 Pulse 107 H 10/12/20 11:31 Resp 14 10/12/20 16:15 BP 104/68 10/12/20 11:31 Pulse Ox 92 10/12/20 11:31 Discharge Plan Discharge Patient Disposition: Home Condition: Stable Prescriptions: New Isopto Tears 0.5 % Drops 2 drp eye-both Q2H PRN (Reason: Dry Eye(S)) Qty: 15 RF: 0 dexamethasone 4 mg Tablet 10 mg PO Q12H Qty: 30 RF: 0 Continued Incruse Ellipta 62.5 mcg/actuation blister with device 1 inh inhalation DAILY RF: 0 albuterol sulfate [ProAir HFA] 90 mcg/actuation HFA aerosol inhaler 2 puff inhalation Q6H PRN (Reason: Shortness Of Breath) RF: 0 fluticasone propion-salmeterol [Advair Diskus] 250-50 mcg/dose blister with device 1 inh INHALATION BID 30 Days Qty: 60 RF: 5 tizanidine 4 mg Tablet 4 mg PO TID PRN (Reason: Muscle Pain) RF: 0 Miralax 17 gram/dose Powder 17 g PO DAILY RF: 0 Narcan 4 mg/actuation [place],Non-Aerosol 4 mg INTRANASAL Q3M PRN (Reason: OVERDOSE) RF: 0 hydrocodone-acetaminophen 7.5-325 mg/15 mL Solution 20 ml PO Q4H PRN (Reason: Pain) Qty: 60 RF: 0 Discontinued nitroglycerin [Nitrostat] 0.4 mg tablet, sublingual 0.4 mg sublingual Q5M PRN (Reason: Chest Pain) RF: 0 amlodipine 10 mg tablet 10 mg PO DAILY Qty: 90 RF: 3 metoprolol tartrate 25 mg tablet 25 mg PO BID Qty: 180 RF: 3 atorvastatin 20 mg Tablet 20 mg PO DAILY RF: 0 Eliquis 2.5 mg Tablet 2.5 mg PO BID RF: 0 Discharge Orders: Discharge Order (Routine); Ordered 10/12/20 Ordered By: Aris Arteaga [place]: [facility] [Outside] Discharge Diet: Advance as tolerated Discharge Activity: Resume usual activity Patient Instructions: Dexamethasone (By mouth), Hospice Care, Opioid Safety Discharge Attestations Time Spent in Discharge Care*: less than 30 min Quality Metrics Clinical Quality Measures During this hospital stay, did patient experience: None Coding Level of Care Code Acute Chg FW DC note Diagnoses Metastatic lung cancer (metastasis from lung to other site) C34.90 Pathological fracture of right hip M84.451A CAD (coronary artery disease) I25.10 Cancer cachexia R64 Protein calorie malnutrition E46 Pathologic cervical vertebral fracture M84.48XA COPD (chronic obstructive pulmonary disease) J44.9 Hyponatremia E87.1 Pneumonia J18.9 Elevated lactic acid level R79.89 Pain of metastatic malignancy G89.3 Intractable pain R52 Generalized weakness R53.1
--- NOTE | 2020-10-12 18:26 | PC.RESP ---
SMOKING CESSATION AND PULMONARY REHAB INFORMATION SENT TO PATIENT.
--- NOTE | 2020-10-15 09:38 | PC.SOCIAL ---
discharge follow up call made, unable to reach patient, voicemail box not set up.
== END 2020-10-12 16:16 | disposition home or self-care (01) | DRG 947 ==
LOC: ER 13:51 → MEDSURG 18:37
PROVIDERS: Admitting Provider Family Medicine; Emergency Provider Emergency Medicine; PCP Nurse Practitioner Family; Visit Provider Internal Medicine
DX: G89.3 Neoplasm related pain (acute) (chronic) (principal); S72.001A Fracture of unspecified part of neck of right femur, initial encounter for closed fracture; J18.9 Pneumonia, unspecified organism; C34.90 Malignant neoplasm of unspecified part of unspecified bronchus or lung; S12.9XXA Fracture of neck, unspecified, initial encounter; C78.7 Secondary malignant neoplasm of liver and intrahepatic bile duct; C79.89 Secondary malignant neoplasm of other specified sites; Z68.1 Body mass index [BMI] 19.9 or less, adult; E87.1 Hypo-osmolality and hyponatremia; E46 Unspecified protein-calorie malnutrition; J44.9 Chronic obstructive pulmonary disease, unspecified; I25.10 Atherosclerotic heart disease of native coronary artery without angina pectoris; I10 Essential (primary) hypertension; M81.0 Age-related osteoporosis without current pathological fracture; F17.200 Nicotine dependence, unspecified, uncomplicated; I25.2 Old myocardial infarction; E86.0 Dehydration; Z20.822 Contact with and (suspected) exposure to COVID-19; Z90.710 Acquired absence of both cervix and uterus; Z83.3 Family history of diabetes mellitus; Z82.49 Family history of ischemic heart disease and other diseases of the circulatory system; Z82.3 Family history of stroke
CPT/HCPCS: 36415; 71045; 72020; 72125; 73521; 73523; 80048; 80053; 83605; 83690; 83735; 83880; 84100; 84145; 84443; 84484; 85025; 85610; 86140; 87040; 87426; 87635; 93970; 94640; 94667; 96365; 96367; 96372; 96375; 96376; 99285; J0692; J1100; J1170; J1650; J1956; J2060; J2270; J2405; J3370; J3411; J7050; J8540; Q0144